=== PATIENT | male | born 1975 ===

== ENCOUNTER 2024-05-08 09:56 | Emergency (ER) | payer OTHER ==
[~2024-05-08] VITALS: Ht 180.3 cm; Wt 77.8 kg
[2024-05-08 12:03] VITALS: BP 137/82; PULSE 67; RESP 18; TEMP 97.8; O2SAT 98
[2024-05-08] MEDS ORDERED: IBUP1TAB5 PO (13:05)
[2024-05-08] MEDS ORDERED: AUG875T PO (13:05)
--- NOTE | 2024-05-08 13:06 | ED.PDOC ---
Eye-HPI HPI Comments This is a 48 year old male with Right tooth ache x 3 weeks. States did not go to the dentist or made a appointment. Now with swelling that started 3 days ago. last dental visit was 1 year ago. No fever, or chills, pain with chewing. Chief Complaint: Tooth Pain Time Seen by MD: 11:59 Primary Care Provider: LIDIA Reviewed Notes: Nurses Notes, Medications, Allergies Allergies: Coded Allergies: NO KNOWN ALLERGIES (Unverified , 05/08/24) Mode of Arrival: Ambulatory Past Medical History PAST MEDICAL HISTORY: Denies Surgical History (Other): wrist surgery Social History Smoker: Non-Smoker Alcohol: Occasionally Drugs: Denies Drug Use Constitutional: reports: chills, fever EENTM: reports: mouth swelling, others (Tooth pain) All Other Systems: Reviewed and Negative Physical Exam General Appearance: No Apparent Distress, None HEENT: Normal ENT Inspection, PERRL/EOMI, Pharynx Normal, Other (Right lower jaw with swelling, mucusal tissue erythem and tender to touch, no odor, no drainage, no cracked tooth) Neck: Full Range of Motion, Non-Tender, Normal Inspection Respiratory: Lungs Clear, Normal Breath Sounds Cardiovascular: Regular Rate/Rhythm Breast Exam: Deferred Gastrointestinal: Non Tender, Normal Bowel Sounds, Soft Genitalia: Deferred Pelvic: Deferred Rectal: Deferred Extremities: Normal inspection, Normal range of motion Neurologic: Alert, No Motor Deficits, Normal Affect, Normal Mood Cerebellar Function: Normal Reflexes: NOT DONE Skin: Dry, Warm Lymphatic: Cervical Adenopathy (L), Cervical Adenopathy (R) Was a procedure done? Was a procedure done?: No EENT DIFF Eye: N/A Ear: Otitis Externa Mouth: Thrush X-Ray, Labs, Meds, VS Vital Signs Date Time Temp Pulse Resp B/P (MAP) Pulse Ox O2 Delivery O2 Flow Rate FiO2 05/08/24 12:03 97.8 67 18 137/82 (100) 98 97.8 05/08/24 12:03 67 18 98 Room Air 05/08/24 10:00 97.8 67 18 137/82 (100) 98 X-Ray, Labs, Meds, VS Comment Patient seen and examined by me. I will start on antibiotics. i sressed the importance of seeing the dentist to have the decay repaired, Instructed to eat on the opposite side. Rinse mouth after eating. Time of 1ST Reevaluation: 13:03 Reevaluation 1ST: Improved Patient Education/Counseling: Diagnosis, Treatment, Prognosis, Need For Follow Up Family Education/Counseling: No Family Present Departure 1 Departure Time of Disposition: 13:03 Impression: Primary Impression: Facial cellulitis Additional Impression: Tooth decay Disposition: HOME / SELF CARE / HOMELESS Condition: Good Additional Instructions: Make sure you follow-up with the dentist Finish all the antibiotics Take motrin for pain Chew on the opposite side e-Prescriptions Amoxicillin & Pot Clavulanate (AUGMENTIN TABLET) 875 Mg Tb 875 MG PO BID for 10 Days, #20 TAB Prov: ABBIE VILLATOROP 05/08/24 Ibuprofen Micronized (Ibuprofen) 600 Mg Tab 600 MG PO Q6HPRN PRN for 5 Days, #20 TAB Prov: ABBIE VILLATOROP 05/08/24 Discharged With: Self Critical Care Note Critical Care Time?: No Stability Stability form required: ABBIE Andres May 08, 2024 13:06
== END 2024-05-08 13:10 | disposition home or self-care (01) ==
LOC: ER 09:56
DX: L03.211 Cellulitis of face (principal); K02.9 Dental caries, unspecified; Z98.890 Other specified postprocedural states